=== PATIENT | male | born 1960 | race Caucasian/White ===

== ENCOUNTER 2017-09-04 02:31 | Emergency (ER) | payer OTHER ==
[2017-09-04 02:59] VITALS: BP 125/74; PULSE 107; TEMP 97.8
[2017-09-04] MEDS ORDERED: Albuterol-Ipratrop 3 mg / 0.5 (3 ml) UD INH STA ×3 (03:00→03:12)
[2017-09-04] MEDS ORDERED: Albuterol-Ipratrop 3 mg / 0.5 (3 ml) UD ONE (03:22)
--- NOTE | 2017-09-04 03:23 | ED PDOC ---
HPI: SOB/CHF/COPD Time Seen by Provider: 09/04/17 02:37 Chief Complaint (Nursing): Shortness Of Breath Chief Complaint (Provider): Shortness Of Breath History Per: Patient History/Exam Limitations: no limitations Additional Complaint(s): 57 y/o [place] male with past medical history of asthma presents to the ED for evaluation of wheezing and shortness of breath, which has been worsening since one day. States using inhaler with mild relief. Patient also reports flu like symptoms including headache. Denies fever, nausea, vomiting or any further medical complaints. Past Medical History Reviewed: Historical Data, Nursing Documentation, Vital Signs Vital Signs: Last Vital Signs Temp 97.8 F 09/04/17 02:56 Pulse 107 H 09/04/17 02:56 Resp 18 09/04/17 02:56 BP 125/74 09/04/17 02:56 Pulse Ox 98 09/04/17 04:30 - Medical History PMH: Asthma, HTN, Hypercholesterolemia Denies: Chronic Kidney Disease - Surgical History Surgical History: Cholecystectomy - Family History Family History: States: Unknown Family Hx - Immunization History Hx Tetanus Toxoid Vaccination: No Hx Influenza Vaccination: No Hx Pneumococcal Vaccination: No - Home Medications Home Medications: Ambulatory Orders Medication Instructions Recorded Flovent Hfa 2 puff INH BID 07/16/14 HCTZ 12.5 mg PO DAILY 07/16/14 Lisinopril 10 mg PO DAILY 07/16/14 Lovastatin 20 mg PO DAILY 07/16/14 Montelukast Sodium [Singulair] 10 mg PO DAILY #20 tab 07/16/14 Prednisone 2 tab PO DAILY #10 tab 07/16/14 Ventolin Hfa 2 puff INH BID 07/16/14 Azithromycin [Zithromax] 250 mg PO DAILY #6 tablet 08/14/15 Lisinopril/Hydrochlorothiazide 1 each PO DAILY #90 tablet 08/14/15 [Zestoretic 10-12.5 mg Tablet] Methylprednisolone [Medrol Dose 4 mg PO DAILY #21 mg 08/14/15 Pack (21 tabs)] Methylprednisolone [Medrol Dosepak] 4 mg PO ASDIR #1 pkg 06/28/16 Promethazine HCl/Codeine 5 - 10 ml PO Q6 PRN #6 oz 06/28/16 [Prometh-Codein 6.25-10 mg/5 ml] levoFLOXacin [Levaquin] 500 mg PO DAILY #9 tab 06/28/16 Amoxicillin/Clavulanate [Augmentin 1 tab PO BID #19 tab 08/05/16 875 MG-125 MG] Methylprednisolone [Medrol Dosepak] 4 mg PO ASDIR #1 pkg 09/04/17 levoFLOXacin [Levaquin] 500 mg PO DAILY #10 tab 09/04/17 - Allergies Allergies/Adverse Reactions: Allergies Allergy/AdvReac Type Severity Reaction Status Date / Time No Known Allergies Allergy Verified 09/04/17 02:59 Review of Systems ROS Statement: Except As Marked, All Systems Reviewed And Found Negative (As per HPI, otherwise negative) Constitutional: Negative for: Fever Respiratory: Positive for: Shortness of Breath, Wheezing Gastrointestinal: Negative for: Nausea, Vomiting Neurological: Positive for: Headache Physical Exam - Reviewed Nursing Documentation Reviewed: Yes Vital Signs Reviewed: Yes - Physical Exam Appears: Positive for: Well, Non-toxic, No Acute Distress Head Exam: Positive for: ATRAUMATIC, NORMAL INSPECTION, NORMOCEPHALIC Skin: Positive for: Normal Color, Warm, Dry Eye Exam: Positive for: EOMI, Normal appearance, PERRL ENT: Positive for: Normal ENT Inspection, Other (Tenderness to frontal sinus bilaterally) Neck: Positive for: Normal, Painless ROM Cardiovascular/Chest: Positive for: Regular Rate, Rhythm. Negative for: Murmur Respiratory: Positive for: Wheezing (expiratory wheezing bilaterally). Negative for: Accessory Muscle Use, Respiratory Distress Gastrointestinal/Abdominal: Positive for: Normal Exam, Bowel Sounds, Soft. Negative for: Tenderness Back: Positive for: Normal Inspection Extremity: Positive for: Normal ROM. Negative for: Deformity Neurologic/Psych: Positive for: Alert, Oriented (x3) - Laboratory Results Result Diagrams: 09/04/17 03:51 09/04/17 03:51 - ECG O2 Sat by Pulse Oximetry: 98 (RA) Pulse Ox Interpretation: Normal Medical Decision Making Medical Decision Making: Time: 03:00 Initial Impression: 57 y/o [place] male with URI and asthma exacerbation Plan: EKG CMP CBC w/ differential Albuterol/Ipratropium 3ml INH Albuterol/Ipratropium 3ml INH Albuterol/Ipratropium 3ml INH Methlyprednisolone 125mg IVP Blood culture Helpock insertion Peak flow pre/post tx Urinalysis Reevaluation Time: 04:20 --Labs reviewed and no clinically significant abnormalities found --Patient reported improvement in symptoms --Patient was instructed to stop augmentin and was prescribed Levaquin 500mg PO and methylprednisolone 4mg PO Clinical impression: Sinusitis, bronchitis Scribe Attestation: Documented by Adams Flores acting as a scribe for John Capps MD. Scribe Attestation: All medical record entries made by the Scribe were at my direction and personally dictated by me. I have reviewed the chart and agree that the record accurately reflects my personal performance of the history, physical exam, medical decision making, and the department course for this patient. I have also personally directed, reviewed, and agree with the discharge instructions and disposition. Disposition - Clinical Impression Clinical Impression: Bronchitis, Sinusitis - Disposition Disposition: Routine/Home Disposition Time: 04:20 Condition: STABLE Prescriptions: levoFLOXacin [Levaquin] 500 mg PO DAILY #10 tab Methylprednisolone [Medrol Dosepak] 4 mg PO ASDIR #1 pkg Instructions: Sinusitis in Adults, Acute Bronchitis Forms: [employer] ([place])
[2017-09-04 03:56] LABS: BASO # 0.1 K/uL (0.0-0.2); BASO % 1.5 % (0.0-2.0); EOS # 0.2 K/uL (0.0-0.7); EOS % 2.9 % (0.0-4.0); HEMOGLOBIN 14.7 g/dL (12.0-18.0); LYMPH # 1.3 K/uL (1.0-4.3); LYMPH % 20.3 % (20.0-40.0); MEAN CELL VOLUME 83.5 fl (80.0-94.0); MEAN CORPUSCULAR HEMOGLOBIN 28.9 pg (27.0-31.0); MEAN CORPUSCULAR HGB CONC 34.6 g/dL (33.0-37.0); MEAN PLATELET VOLUME 8.3 fl (7.2-11.7); MONO % 15.3 % (0.0-10.0); NEUT # 3.7 K/uL (1.8-7.0); NRBC % 0.5 % (0.0-0.0); RBC 5.08 Mil/uL (4.40-5.90); WHITE BLOOD COUNT 6.2 K/uL (4.8-10.8)
[2017-09-04 04:14] LABS: ALB/GLOB RATIO 1.4 (1.0-2.1); ALBUMIN 4.2 g/dL (3.5-5.0); ALT/SGPT 35 U/L (21-72); AST/SGOT 21 U/L (17-59); BLOOD UREA NITROGEN 13 mg/dl (9-20); GFR AFRICAN-AMERICAN > 60; GFR NON-AFRICAN AMERICAN > 60
[2017-09-04 04:51] VITALS: O2SAT 97
[2017-09-04 04:56] VITALS: RESP 22
--- NOTE | 2017-09-04 09:36 | CARD ---
APPROVED REPORT EKG Measurement Heart [id number] <Conclusion> Normal sinus rhythm Left axis deviation Incomplete right bundle branch block Minimal voltage criteria for LVH, may be normal variant Abnormal ECG
== END 2017-09-04 05:04 | disposition home or self-care (01) ==
LOC: H.ER 02:31
DX: J44.9 Chronic obstructive pulmonary disease, unspecified (principal); J32.9 Chronic sinusitis, unspecified; E78.00 Pure hypercholesterolemia, unspecified; I10 Essential (primary) hypertension
CPT/HCPCS: 80053; 85025; 87040; 87804; 93005; 94640; 96374; 99283; J2930